=== PATIENT | female | born 1980 | race American Indian/Alaskan Native ===

== ENCOUNTER 2017-05-14 05:38 | Emergency (ER) | payer OTHER ==
[2017-05-14 05:52] VITALS: BP 128/81; PULSE 84; RESP 20; TEMP 97.7; O2SAT 100
[2017-05-14] MEDS ORDERED: Sodium Chloride 0.9% 500 ML IV ONE (06:12)
--- NOTE | 2017-05-14 06:26 | C.PDOC ---
History Of Present Illness A 36 y/o female c/o intermittent, diffuse abdominal pain that has been going on for months. Pt was seen at [facility] and [facility] 2 weeks prior for a similar complaint and had a full work up done with a diagnosis of ruptured ovarian cyst, kidney infection and constipation. Pt was prescribed antibiotics but the pain never improved, yet was durable until tonight. Pt was found laying on the floor crying in pain. Pt also c/o constipation with her last BM being 2 days ago. Pt denies urinary symptoms, vaginal discharge or bleeding, fever, chills, nausea, vomiting, or any other complaints. Time Seen by Provider: 05/14/17 05:58 Chief Complaint (Nursing): Abdominal Pain History Per: Patient History/Exam Limitations: no limitations Onset/Duration Of Symptoms: Days, Intermittent Episodes Current Symptoms Are (Timing): Still Present Severity: Mild Location Of Pain/Discomfort: Diffuse Quality Of Discomfort: "Pain" Associated Symptoms: Constipation Last Bowel Movement: Days Ago (2 days) Recent travel outside of the [place]: No Additional History Per: Patient Abnormal Vaginal Bleeding: No Past Medical History Reviewed: Historical Data, Nursing Documentation, Vital Signs Vital Signs: Last Vital Signs Temp 97.7 F 05/14/17 05:49 Pulse 84 05/14/17 05:49 Resp 20 05/14/17 05:49 BP 128/81 05/14/17 05:49 Pulse Ox 100 05/14/17 06:38 - Medical History PMH: No Chronic Diseases Family History: States: Unknown Family Hx - Social History Hx Tobacco Use: No Hx Alcohol Use: No Hx Substance Use: No - Immunization History Hx Tetanus Toxoid Vaccination: No Hx Influenza Vaccination: No Hx Pneumococcal Vaccination: No Review Of Systems Constitutional: Negative for: Fever, Chills Gastrointestinal: Positive for: Abdominal Pain, Constipation. Negative for: Nausea, Vomiting Genitourinary: Negative for: Dysuria, Hematuria, Vaginal Discharge, Vaginal Bleeding Physical Exam - Physical Exam Appears: Non-toxic, No Acute Distress Skin: Warm, Dry Head: Atraumatic, Normacephalic Eye(s): bilateral: Normal Inspection, PERRL Chest: Symmetrical Cardiovascular: Rhythm Regular, No Murmur Respiratory: Normal Breath Sounds, No Accessory Muscle Use, No Rales, No Rhonchi , No Wheezing Gastrointestinal/Abdominal: Soft, Tenderness (Diffuse abdominal tenderness), Distention (minimal), No Guarding, No Rebound, Hernia (Small umbilical hernia that is reducible) Back: Normal Inspection, No CVA Tenderness Neurological/Psych: Oriented x3, Normal Speech ED Course And Treatment O2 Sat by Pulse Oximetry: 100 (RA) Pulse Ox Interpretation: Normal Progress Note: Impression: 36 y/o female c/o diffuse abdominal pain for months. Plans: Blood labs, XRAY of the abdomen, IV fluids, Toradol, Reassess. Pt walked out prior to labs and XR. We looked in all areas of the ED and bathrooms and pt was not in bed Disposition - Disposition Disposition: ELOPEMENT - ER ONLY Disposition Time: 07:10 Condition: UNKNOWN - Clinical Impression Clinical Impression: Abdominal pain - Scribe Statement The provider has reviewed the documentation as recorded by the Scribe Sil sharp All medical record entries made by the Janelibe were at my direction and personally dictated by me. I have reviewed the chart and agree that the record accurately reflects my personal performance of the history, physical exam, medical decision making, and the department course for this patient. I have also personally directed, reviewed, and agree with the discharge instructions and disposition.
== END 2017-05-14 06:35 | disposition left against medical advice (07) ==
LOC: C.ER 05:38
DX: R10.84 Generalized abdominal pain (principal)